=== PATIENT | male | born 1960 | race Caucasian/White ===

== ENCOUNTER 2017-07-05 10:51 | Emergency (ER) | payer OTHER ==
[~2017-07-05] VITALS: Ht 175.3 cm; Wt 70.3 kg
[~2017-07-05 10:51] MED LIST: AMOXICILLIN 50500 MG PO; ANTIPYRINE-BENZ14 ML OT; ASPIR 8181 MG PO; CIPRODEX OTIC7.5 ML OTIC; LIPITOR40 MG PO; MEDROLDOSEPACK PO; NAPROSYN500 MG PO; ROBAXIN500 MG PO
[2017-07-05 11:09] LABS: ABSOLUTE BASOPHILS 0.1 thou/uL (0.0-0.2); ABSOLUTE EOSINOPHILS 0.1 thou/uL (0.0-0.7); ABSOLUTE MONOCYTES 0.8 thou/uL (0.0-1.2); ABSOLUTE NEUTROPHILS 4.3 thou/uL (1.6-8.1); BASOPHILS 0.7 %; EOSINOPHILS 1.9 %; HEMATOCRIT 48.3 % (42.0-52.0); HEMOGLOBIN 16.6 gm/dL (14.0-18.0); LYMPHOCYTES 27.1 %; MCH 33.1 pg (26.0-34.0); MCHC 34.4 g/dL (28.0-37.0); MCV 96.3 fL (80.0-100.0); MONOCYTES 11.2 %; NUCLEATED RBCS 0 /100WBC; PLATELET COUNT* 294 thou/uL (150-400); POLYS 59.1 %; RBC 5.01 mil/uL (4.50-6.00); RDW-CV 12.9 % (10.5-14.5); WBC 7.2 thou/uL (4.0-11.0)
[2017-07-05 11:18] LABS: ANION GAP 7 mmol/L (7-16); BUN 11 mg/dL (7-18); CHLORIDE 104 mmol/L (98-107); CO2 30 mmol/L (21-32); CREATININE 1.1 mg/dL (0.6-1.3); GLUCOSE 120 mg/dL (70-99); POTASSIUM 4.3 mmol/L (3.5-5.1); SODIUM 141 mmol/L (136-145)
[2017-07-05 11:21] LABS: APTT 26.1 Seconds (25.0-31.3); INR 1.1; PROTIME 10.5 Seconds (9.20-11.50)
[2017-07-05 11:34] LABS: ALBUMIN 4.4 g/dL (3.4-5.0); ALKALINE PHOSPHATASE 58 U/L (46-116); CK-MB MASS < 0.5 ng/mL (<0.5-3.6); LIPASE 142 U/L (73-393); NT-PRO BRAIN NAT PEPTIDE 31 pg/mL (<300); SGOT 20 U/L (15-37); SGPT 28 U/L (30-65); TOTAL BILIRUBIN 0.7 mg/dL (<0.1-1.0); TROPONIN-I LEVEL <0.06 ng/mL (<0.06)
[2017-07-05 13:50] VITALS: BP 164/83
--- NOTE | 2017-07-05 18:00 | EKG ---
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
--- NOTE | 2017-07-05 18:00 | EKG ---
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
== END 2017-07-05 13:50 | disposition home or self-care (01) ==
LOC: M.ERS 10:51
PROVIDERS: Family Medicine
DX: R07.9 Chest pain, unspecified (principal); F17.210 Nicotine dependence, cigarettes, uncomplicated; Z86.73 Personal history of transient ischemic attack (TIA), and cerebral infarction without residual deficits